=== PATIENT | male | born 1950 | race Caucasian/White ===

== ENCOUNTER 2019-05-29 22:02 | Emergency (ER) | payer MEDICARE, OTHER, SELFPAY ==
--- NOTE | ~2019-05-29 | XR_ITS ---
EXAMINATION: XR chest 2V DATE: 05/29/2019 22:38 INDICATION: Congestive heart failure. Defibrillator fired. TECHNIQUE: PA and lateral views of the chest were obtained. COMPARISON: Chest radiograph dated 05/27/2018 FINDINGS: Increasing interstitial and hazy groundglass opacities in the bilateral lower lung zones. No pleural effusion or pneumothorax. Cardiomegaly. Coronary artery stenting. Two lead pacemaker/AICD seen with l hodan projecting over the expected locations of the right ventricle and overlying the left ventricle l ikely having traversed the coronary sinus. Moderate thoracic spondylosis. IMPRESSION: 1. Increasing interstitial and groundglass opacities in the bilateral lower lung zones which could re present congestive heart failure related mild pulmonary edema, atelectasis or pneumonia. 2. Cardiomegaly. Reviewed, dictated and finalized at location A. [facility]INT[facility]ENT DIVISION IMPRESSION: 1. Increasing interstitial and groundglass opacities in the bilateral lower amari g zones which could represent congestive heart failure related mild pulmonary e jim, atelectasis or pneumonia. 2. Cardiomegaly.
--- NOTE | 2019-05-29 22:07 | ED_ITS ---
I attest that this documentation has been prepared under the direction and in the presence of Yelitza Valdovinos MD. Jeffry Knowles, Scribe 05/29/19;22:07 HPI - Arrhythmia/Palpitations General Stated Complaint: pacemaker fired Time Seen by Provider: 05/29/19 22:04 Related Data Home Medications Medication Instructions Recorded Confirmed amiodarone 200 mg tablet 200 mg PO DAILY 02/15/19 carvedilol 25 mg tablet 25 mg PO Q12H 02/15/19 furosemide 40 mg tablet 40 mg PO QAM 02/15/19 rivaroxaban 20 mg tablet 20 mg PO QPM 02/15/19 sacubitril 24 mg-valsartan 26 mg 1 tablet PO BID 02/15/19 tablet ticagrelor 90 mg tablet 90 mg PO Q12H 02/15/19 Allergies Allergy/AdvReac Type Severity Reaction Status Date / Time No Known Allergies Allergy Unverified 04/23/18 07:03 Discharge Plan Discharge Prescriptions: No Action amiodarone 200 mg tablet 200 mg PO DAILY RF: 0 Brilinta 90 mg tablet 90 mg PO Q12H RF: 0 carvedilol 25 mg tablet 25 mg PO Q12H RF: 0 Entresto 24-26 mg tablet 1 tablet PO BID RF: 0 furosemide [Lasix] 40 mg tablet 40 mg PO QAM RF: 0 Xarelto 20 mg tablet 20 mg PO QPM RF: 0
--- NOTE | 2019-05-29 22:09 | ED.GENADULT ---
HPI - General Adult General Chief complaint: Unspecified Stated complaint: pacemaker fired Time Seen by Provider: 05/29/19 22:04 Source: patient Mode of arrival: EMS Limitations: no limitations History of Present Illness HPI narrative: The pt is a 68 y/o male who presents to the ED, via EMS, c/o his defibrillator firing which occurred tonight. Pt states that he has a pacemaker/defibrillator that was installed in 2019 following an MA and two stents. Pt states that these two procedures were done by Dr. Orellana, his lining ironer, and Dr. 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 After an episode of this firing, he has had no issues. Pt states that today, he was dealing with congestion, so he decided to sleep in his recliner. He states that when he went to grab his water, his defibrillator fired. He notes that he took all of his medication as prescribed. The pt denies CP, SOB, and N/V/D. complaint: Defibrillator firing Onset (ago): unknown (Occurred tonight) Associated symptoms: other (Congestion (Onset prior to defibrillator firing)) Treatments prior to arrival: none Related Data Home Medications Medication Instructions Recorded Confirmed amiodarone 200 mg tablet 200 mg PO DAILY 02/15/19 carvedilol 25 mg tablet 25 mg PO Q12H 02/15/19 furosemide 40 mg tablet 40 mg PO QAM 02/15/19 rivaroxaban 20 mg tablet 20 mg PO QPM 02/15/19 sacubitril 24 mg-valsartan 26 mg 1 tablet PO BID 02/15/19 tablet ticagrelor 90 mg tablet 90 mg PO Q12H 02/15/19 Allergies Allergy/AdvReac Type Severity Reaction Status Date / Time No Known Allergies Allergy Unverified 04/23/18 07:03 Review of Systems Review of Systems: All systems reviewed & are unremarkable except as noted in HPI and below ENT: Reports nasal congestion (Onset prior to defibrillator firing) Cardiovascular: Cardiovascular: Denies chest pain Respiratory: Respiratory: Denies dyspnea Gastrointestinal: Gastrointestinal: Denies diarrhea, Denies nausea and Denies vomiting PMFSH Past Medical History Medical History (Updated 05/30/19 @ 00:57 by Yelitza Valdovinos MD) Afib CAD (coronary artery disease) Chronic atrial fibrillation History of prediabetes HTN (hypertension) Ischemic cardiomyopathy Mixed hyperlipidemia Myocardial infarction On meterman drug therapy Sepsis Septic shock Surgical History Surgical History (Updated 05/29/19 @ 22:11 by Jeffry Knowles) History of implantable cardioverter-defibrillator (ICD) insertion S/P coronary artery stent placement Stented coronary artery Social History Social History (Updated 05/29/19 @ 22:20 by Jeffry Knowles) Smoking status: Never smoker Gender identity (if verbalized by the patient): Male Comments PCP: Dr. Santiago Business Services Assistant: Dr. Orellana Relations Mgr: Dr. Guevara Exam Const: General: cooperative, no acute distress and alert Nutritional Appearance: obese Orientation/consciousness: patient oriented x3 Limitations: no limitations HENMT: Mouth: Yes lip normal and Yes dry mucous membranes Resp: Effort & Inspection: normal respiratory effort Auscultation: clear to auscultation bilaterally Cardio: Rate: regular rate Rhythm: regular rhythm (With occasional PVCs) GI: GI Palp: Yes Soft to palpation and No Tenderness to palpation present (GI) Auscultation: normal bowel sounds Skin: General skin exam: normal color and other (Venous stasis dermatitis BLE) Neuro: General: patient oriented x3 Cognition (Neuro): normal cognition Speech: normal speech Extrem: General: edema bilateral Psych: Mental Status: mental status grossly normal Affect: normal affect Attitude: cooperative Course Course Emergency Course: Patient presents with episode of defibrillator firing. Patient found to have episode of ventricular dysrhythmia noted on pacemaker/defibrillator interrogation. Patient has lining ironer and global position system technician at [facility]. Patient had wa
[2019-05-29 22:12] VITALS: BP 161/90; PULSE 87; RESP 18; TEMP 36.2; O2SAT 100
--- NOTE | 2019-05-29 22:17 | ECG_ITS ---
Measurements Intervals [place] Rate: 90 P: SD: 0 QRS: 230 QRSD: 164 T: 41 QT: 423 QTc: 519 Interpretive Statements ELECTRONIC VENTRICULAR PACEMAKER VENTRICULAR COUPLET AND VENTRICULAR PREMATURE COMPLEX NO FURTHER INTERPRETATION IS POSSIBLE ABNORMAL ECG Electronically Signed On 05-30-2019 6:51:45 EDUCATION REVIEWER by Jackson Angelo D.O.
[2019-05-29 22:46] VITALS: BP 162/92; PULSE 84; RESP 18; O2SAT 100
[2019-05-29 23:01] LABS: Basophils Absolute Auto 0.1 K/mm3 (0.0-0.1); Eosinophils Absolute Auto 0.3 K/mm3 (0-0.3); Eosinophils Percent Auto 5.1 % (0-4.4); Hematocrit 48.8 % (42.0-52.0); Hemoglobin 15.8 g/dL (14.0-18.0); Immature Granulocyte Absolute 0.02 K/mm3 (0.00-0.031); Immature Granulocyte Percent A 0.3 % (0-0.5); Lymphocytes Absolute Auto 0.94 K/mm3 (0.9-3.2); Mean Corpuscular HGB Conc 32.4 g/dl (32-36); Mean Corpuscular Volume 98.8 fl (80-100); Mean Platelet Volume 9.5 fl (7.4-10.4); Monocytes Absolute Auto 0.8 K/mm3 (0.1-0.6); Monocytes Percent Auto 11.1 % (2.6-8.5); Neutrophils Absolute Auto 4.6 K/mm3 (1.3-6.7); Neutrophils Percent Auto 68.5 % (45.5-73.1); Platelet Count Result 175 k/mm3 (150-375); Red Blood Count 4.94 M/mm3 (4.6-6.20); Red Cell Distribution Width 14.3 % (11.5-14.5); White Blood Count 6.7 K/mm3 (4.5-10.0)
[2019-05-29 23:11] LABS: INR 1.8; Prothrombin Time 20.2 Seconds (11.1-14.7)
[2019-05-29 23:12] LABS: Partial Thromboplastin Time 40.1 SECONDS (22.3-36.8)
[2019-05-29 23:14] LABS: Alanine Aminotransferase 20 U/L (4-50); Albumin Level 4.6 g/dL (3.5-5.1); Alkaline Phosphatase 60 U/L (38-126); Aspartate Amino Transferase 36 U/L (17-59); Bilirubin,Total 0.6 mg/dL (0.2-1.3); Blood Urea Nitrogen 22 mg/dL (9-20); Carbon Dioxide 27 mmol/L (22-30); Chloride 100 mmol/L (98-107); Estimated Glomerular Filt Rate > 60; Glucose 183 mg/dL (75-110); Magnesium 2.2 mg/dL (1.6-2.3); Sodium 141 mmol/L (137-145)
[2019-05-29 23:22] LABS: NT Pro B Type Natriuretic Pept 2530 PG/ML (5-100)
[2019-05-29 23:24] LABS: Troponin I 0.027 ng/mL (0.000-0.034)
[2019-05-29 23:31] LABS: Add Urine Microscopic? YES; Appearance Urine Cloudy (Clear); Bilirubin Urine Negative (Negative); Blood Urine Negative (Negative); Color Urine Yellow (Yellow); Glucose Urine UA Negative (Negative); Ketones Urine Negative (Negative); Leukocyte Esterase Ur Negative LEU/UL (Negative); Nitrate Urine Negative (Negative); Protein Urine 1+ mg/dL (Negative); Specific Grav Ur 1.015 (1.001-1.035); Squamous Epithelial Cell Urine Rare /hpf (Few); Urobilinogen Urine Negative mg/dL (<2.0); WBC Urine 0-3 /hpf
[2019-05-29 23:43] VITALS: BP 135/87; PULSE 80; RESP 18; O2SAT 100
[2019-05-30] MEDS: FUROSEMIDE INJ 40 MG/4 ML VIAL IV PUSH (00:19)
[2019-05-30 00:25] VITALS: BP 146/82; PULSE 90; RESP 15; O2SAT 98
[2019-05-30 01:00] LABS: Free T4 Free Thyroxine Reflex 0.96 ng/dL (0.78-2.19)
[2019-05-30 01:16] VITALS: BP 125/85; PULSE 80; RESP 17; O2SAT 97
[2019-05-30 01:45] LABS: Total Triiodothyronine (T3) 1.05 NG/ML (0.97-1.69)
[2019-05-30 02:34] LABS: Troponin I 0.054 ng/mL (0.000-0.034)
[2019-05-30 02:40] VITALS: BP 135/84; PULSE 80; RESP 19; O2SAT 100
[2019-05-30 03:31] VITALS: BP 133/76; PULSE 80; RESP 22; TEMP 36.2; O2SAT 100
--- NOTE | 2019-05-30 03:42 | PC.NURSE ---
Addendum entered by Wendi Pablo 05/30/19 05:48: [facility] called with updated ETA...approximately 0630. Addendum entered by Wendi Pablo 05/30/19 04:40: [facility] called with updated ETA...approximately 0600. Original Note: Called [facility] for transport to [facility], Room 1358B. ETA 45 minutes.
[2019-05-30 03:51] VITALS: BP 144/96; PULSE 80; RESP 21; O2SAT 98
[2019-05-30 05:40] VITALS: BP 140/87; PULSE 82; RESP 17; TEMP 36.3; O2SAT 100
== END 2019-05-30 06:42 | disposition short-term general hospital (02) ==
PROVIDERS: Emergency Provider Emergency Medicine; PCP Internal Medicine
DX: I49.9 Cardiac arrhythmia, unspecified (principal); I11.0 Hypertensive heart disease with heart failure; I50.9 Heart failure, unspecified; I48.91 Unspecified atrial fibrillation; I25.10 Atherosclerotic heart disease of native coronary artery without angina pectoris; E78.5 Hyperlipidemia, unspecified; Z95.810 Presence of automatic (implantable) cardiac defibrillator
CPT/HCPCS: 36415; 71046; 80053; 81001; 83735; 83880; 84439; 84443; 84480; 84484; 85025; 85610; 85730; 87804; 93005; 96374; 99285; J1940

== ENCOUNTER 2021-12-27 04:19 | Emergency (ER) | payer MEDICARE, OTHER, SELFPAY ==
[2021-12-27] VITALS (14 sets, daily range): BP systolic 124–164; BP diastolic 56–130; PULSE 74–91; RESP 13–21; TEMP 36.8; O2SAT 94–98
--- NOTE | ~2021-12-27 | XR_ITS ---
EXAMINATION: XR chest 2V DATE: 12/27/2021 05:08 INDICATION: Left chest pain. TECHNIQUE: Frontal and lateral views of the chest were obtained. COMPARISON: Chest 2 views 05/29/2019 FINDINGS: There is no pneumonia or pneumothorax. There is a small left pleural effusion. Cardiomegaly is noted. There is a left chest pacer/defibrillator with leads in right ventricle and coronary sinus . IMPRESSION: 1. Small left pleural effusion. 2. Cardiomegaly. Reviewed, dictated and finalized at location A.
--- NOTE | 2021-12-27 04:28 | ECG_ITS ---
Measurements Intervals [place] Rate: 89 P: MD: 0 QRS: 232 QRSD: 143 T: 42 QT: 394 QTc: 481 Interpretive Statements ELECTRONIC VENTRICULAR PACEMAKER VENTRICULAR TRIGEMINY NO FURTHER INTERPRETATION IS POSSIBLE ABNORMAL ECG COMPARED TO ECG 05/29/2019 22:08:25 VENTRICULAR TRIGEMINY NOW PRESENT Electronically Signed On 12-27-2021 6:45:09 CDT by Jackson Angelo D.O.
--- NOTE | 2021-12-27 04:32 | PC.NURSE ---
Upon arrival to ED denies CP. Reports has been intermittent over last 3 days and gets worth with movement
--- NOTE | 2021-12-27 04:52 | ED.GENADULT ---
HPI - General Adult General Chief complaint: Chest Pain Stated complaint: CHEST PAIN FOR 3 DAYS Time Seen by Provider: 12/27/21 04:28 History of Present Illness HPI narrative: Patient 71-year-old gentleman who presents the emergency department with chief complaint of chest discomfort. The patient reports that he has prior history of cardiac disease has several stents and has a pacemaker secondary to A. fib. Patient reports he has congestive heart failure and his last EF was 45%. Patient states that over the last several days he has noticed he has had some intermittent discomfort in the left side of his chest. Patient reports that its occurs usually when he is at rest and reports that it actually improves whenever he gets up and walks around. The patient denies diaphoresis denies increase shortness of breath denies increased peripheral edema. Related Data Home Medications Medication Instructions Recorded Confirmed furosemide 40 mg tablet (Lasix) 40 mg PO QAM 02/15/19 rivaroxaban 20 mg tablet (Xarelto) 20 mg PO QPM 02/15/19 sacubitril 24 mg-valsartan 26 mg 1 tablet PO BID 02/15/19 tablet (Entresto) aspirin 81 mg tablet,delayed 81 mg PO DAILY 01/21/20 release (Adult Aspirin Regimen) carvedilol 25 mg tablet 12.5 mg PO Q12H 01/21/20 Allergies Allergy/AdvReac Type Severity Reaction Status Date / Time No Known Allergies Allergy Verified 12/27/21 04:22 Review of Systems Review of Systems: A 10 system review of systems was completed on the patient and is negative except for what is stated in the HPI. Nursing and ancillary documentation was reviewed. 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 HEAD: Normocephalic, atraumatic. EYES: PERRLA and EOMI. ENT: Nares clear, no rhinorrhea or epistaxis. Mucous membranes moist. NECK: Supple. CHEST: Clear to auscultation. No respiratory distress. HEART: Regular rate and rhythm. No murmur heard. Normal peripheral pulses. ABDOMEN: Soft, nontender, nondistended, normal active bowel sounds. EXTREMITIES: Normal range of motion. No edema. SKIN: Warm, dry, no rash. NEURO: No focal deficits. Alert and oriented x3. PSYCH: Normal mood and affect. Course Course Emergency Course: EKG shows a paced rhythm and rate of 89 Vital Signs Vital signs: Vital Signs Temperature 98.3 F 12/27/21 04:23 Pulse Rate 86 12/27/21 04:23 Respiratory Rate 16 12/27/21 04:23 Blood Pressure 164/103 H 12/27/21 04:23 Pulse Oximetry 98 12/27/21 04:23 Oxygen Delivery Room Air 12/27/21 04:23 Temperature 98.3 F 12/27/21 04:23 Pulse Rate 82 12/27/21 09:14 Respiratory Rate 18 12/27/21 09:14 Blood Pressure 140/56 L 12/27/21 09:14 Pulse Oximetry 98 12/27/21 09:14 Oxygen Delivery Room Air 12/27/21 04:23 Medical Decision Making Vital Signs Vital Signs: Vital Signs Temperature 98.3 F 12/27/21 04:23 Pulse Rate 86 12/27/21 04:23 Respiratory Rate 16 12/27
[2021-12-27 05:01] LABS: Basophils Absolute Auto 0.1 K/mm3 (0.0-0.1); Eosinophils Absolute Auto 0.3 K/mm3 (0-0.3); Eosinophils Percent Auto 5.1 % (0-4.4); Hematocrit 52.1 % (42.0-52.0); Hemoglobin 17.4 g/dL (14.0-18.0); Immature Granulocyte Absolute 0.04 K/mm3 (0.00-0.031); Immature Granulocyte Percent A 0.7 % (0-0.5); Lymphocytes Absolute Auto 1.21 K/mm3 (0.9-3.2); Mean Corpuscular HGB Conc 33.4 g/dl (32-36); Mean Corpuscular Hemoglobin 32.3 pg (26-34); Mean Corpuscular Volume 96.7 fl (80-100); Mean Platelet Volume 8.5 fl (7.4-10.4); Monocytes Absolute Auto 0.6 K/mm3 (0.1-0.6); Monocytes Percent Auto 9.3 % (2.6-8.5); Neutrophils Absolute Auto 3.9 K/mm3 (1.3-6.7); Neutrophils Percent Auto 63.9 % (45.5-73.1); Platelet Count Result 152 k/mm3 (150-375); Red Blood Count 5.39 M/mm3 (4.6-6.20); Red Cell Distribution Width 14.9 % (11.5-14.5); White Blood Count 6.1 K/mm3 (4.5-10.0)
[2021-12-27 05:10] LABS: Alanine Aminotransferase 19 U/L (6-50); Albumin Level 4.1 g/dL (3.5-5.1); Alkaline Phosphatase 54 U/L (38-126); Anion Gap 13 mmol/L (8-16); Aspartate Amino Transferase 23 U/L (17-59); Bilirubin,Total 0.7 mg/dL (0.2-1.3); Blood Urea Nitrogen 25 mg/dL (9-20); Calcium 8.6 mg/dL (8.4-10.2); Carbon Dioxide 20 mmol/L (22-30); Chloride 107 mmol/L (98-107); Estimated CRCL calculation 65 ml/min; Estimated Glomerular Filt Rate 59; Glucose 138 mg/dL (65-110); Lipase 41 U/L (23-300); Potassium 3.6 mmol/L (3.4-5.0); Sodium 140 mmol/L (137-145)
[2021-12-27 05:12] LABS: INR 1.3; Prothrombin Time 15.7 Seconds (11.1-14.7)
[2021-12-27 05:13] LABS: Partial Thromboplastin Time 30.2 SECONDS (22.3-36.8)
[2021-12-27 05:19] LABS: NT Pro B Type Natriuretic Pept 1150 pg/mL (5-100)
[2021-12-27 05:21] LABS: Troponin I 0.026 ng/mL (0.000-0.034)
[2021-12-27 07:35] LABS: Troponin I 0.027 ng/mL (0.000-0.034)
== END 2021-12-27 09:15 | disposition home or self-care (01) ==
PROVIDERS: Emergency Provider Emergency Medicine; PCP Internal Medicine
DX: S29.011A Strain of muscle and tendon of front wall of thorax, initial encounter (principal); R07.89 Other chest pain; I48.20 Chronic atrial fibrillation, unspecified; I25.10 Atherosclerotic heart disease of native coronary artery without angina pectoris; I25.5 Ischemic cardiomyopathy; I50.9 Heart failure, unspecified; I11.0 Hypertensive heart disease with heart failure; E78.2 Mixed hyperlipidemia; I25.2 Old myocardial infarction; R73.03 Prediabetes; Z95.5 Presence of coronary angioplasty implant and graft; Z95.810 Presence of automatic (implantable) cardiac defibrillator; Z79.01 Long term (current) use of anticoagulants; R00.8 Other abnormalities of heart beat; X58.XXXA Exposure to other specified factors, initial encounter
CPT/HCPCS: 36415; 71046; 80053; 83690; 83880; 84484; 85025; 85610; 85730; 93005; 99284